=== PATIENT | female | born 1955 | race Caucasian/White ===

== ENCOUNTER 2023-02-10 10:19 | Emergency (ER) | payer MEDICARE, OTHER ==
[~2023-02-10] VITALS: Ht 172.7 cm; Wt 73.4 kg
[2023-02-10 10:32] VITALS: BP 170/76
[2023-02-10] MEDS ORDERED: LISI20TA28 PO (11:06)
[2023-02-10] MEDS ORDERED: LEVO125C4 PO (11:06)
== END 2023-02-10 11:25 | disposition home or self-care (01) ==
LOC: ER 10:20
DX: I10 Essential (primary) hypertension (principal); E03.9 Hypothyroidism, unspecified; Z79.899 Other long term (current) drug therapy
CPT/HCPCS: 99283